=== PATIENT | female | born 1975 ===

== ENCOUNTER 2017-01-11 08:38 | Outpatient (CLI) | payer OTHER ==
--- NOTE | 2017-01-11 15:33 | Mammography Report ---
BILATERAL DIGITAL SCREENING MAMMOGRAM with CAD: 01/11/17 08:38:00 CLINICAL: Routine screening. COMPARISON:12/01/15 FINDINGS: The breasts are heterogeneously dense, which may obscure small masses. No mass, architectural distortion or suspicious calcifications. IMPRESSION: No mammographic evidence of malignancy. BI-RADS CATEGORY: 1 - - Negative RECOMMENDATION: Routine mammographic screening in one year. COMMENT: Patient follow-up letters are generated by our [employer] application.
== END 2017-01-11 08:39 | disposition home or self-care (01) ==
LOC: SPVWC 08:38
PROVIDERS: ATTEND Internal Medicine
DX: Z12.31 Encounter for screening mammogram for malignant neoplasm of breast (principal)
CPT/HCPCS: 77067; G0202